=== PATIENT | female | born 1935 | race Caucasian/White ===

== ENCOUNTER 2022-03-26 15:17 | Outpatient (CLI) | payer MEDICARE, SELFPAY ==
--- NOTE | ~2022-03-26 | CT_ITS ---
EXAMINATION: CT brain wo con DATE: 03/26/2022 15:39 INDICATION: Dizziness, weakness and persistent headaches TECHNIQUE: Computed tomography (CT) of the head was performed without intravenous contrast. Sagittal and coronal reconstructions were performed. The mA was adjusted according to patient size. Iterative reconstruction technique was employed. The dose-length product was 529.67 mGy-cm. COMPARISON: head CT dated 03/28/2010 FINDINGS: Small old lacunar infarcts at the head of the right caudate nucleus and at the left thalamus. No acut e intracranial hemorrhage, acute infarction or abnormal extra axial fluid collection. There is mild s cattered white matter hypoattenuation consistent with chronic small vessel ischemic disease. Symmetri c prominence of the sulci and subarachnoid spaces overlying the convexities consistent with moderate age-appropriate diffuse cerebral volume loss. Ventricles are normal and symmetric. No mass/mass effec t. Changes of bilateral intraocular lens replacement. The orbits and mastoid air cells are normal. Mi ld mucosal thickening the right sphenoid sinus. IMPRESSION: 1. 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 No acute intracranial p rocess. Reviewed, dictated and finalized at location A. [employer] IMPRESSION: 1. 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 N o acute intracranial process.
== END 2022-03-26 15:18 | disposition home or self-care (01) ==
PROVIDERS: PCP Physician Assistant; Visit Provider Physician Assistant
DX: R42 Dizziness and giddiness (principal); Z86.73 Personal history of transient ischemic attack (TIA), and cerebral infarction without residual deficits
CPT/HCPCS: 70450

== ENCOUNTER 2022-10-27 16:38 | Emergency (ER) | payer MEDICARE, SELFPAY ==
--- NOTE | ~2022-10-27 | XR_ITS ---
EXAMINATION: XR ankle RT min 3V, XR foot RT min 3V DATE: 10/27/2022 17:08 INDICATION: Right ankle pain and bruising post fall 3 days prior TECHNIQUE: 1. Anteroposterior, mortise, additional oblique and lateral view of the right ankle were obtained. 2. Dorsoplantar, two oblique and lateral views of the right foot were obtained. COMPARISON: None FINDINGS: Diffuse osteopenia. Nondisplaced avulsion fracture at the distal tip of the lateral malleolus with ov erlying soft tissue swelling. Alignment of the right foot and ankle is otherwise normal. No other acu te fractures identified. Small Achilles and plantar calcaneal spurs. Mild polyarticular osteoarthriti s at a few tarsal metatarsal and interphalangeal joints. IMPRESSION: 1. Nondisplaced avulsion fracture at the tip of the lateral malleolus. Reviewed, dictated and finalized at location A. IMPRESSION: 1. Nondisplaced avulsion fracture at the tip of the lateral malleolus.
[2022-10-27 16:51] VITALS: BP 139/52; PULSE 75; RESP 16; TEMP 36.7; O2SAT 99
--- NOTE | 2022-10-27 17:14 | ED.LOWEXIN ---
HPI - Extremity Injury (Lower) General Chief Complaint: Extremity Injury, Lower Stated Complaint: Right Ankle Pain Time Seen by Provider: 10/27/22 17:14 Source: patient, RN notes reviewed and old records reviewed Mode of arrival: ambulatory Limitations: no limitations History of Present Illness HPI Narrative: 86-year-old female presents to the [facility] with complaints of right ankle pain after falling 3 days ago. Patient is not a very good historian. Denies any past medical or surgical history. Has been walking on it for the past 3 days Bruising, swelling noted to the lateral aspect of the right ankle Onset (ago): day(s) (3) Related Data Home Medications Medication Instructions Recorded Confirmed No Home Medications 10/27/22 10/27/22 Allergies Allergy/AdvReac Type Severity Reaction Status Date / Time No Known Allergies Allergy Unverified 05/24/17 10:34 Review of Systems Review of Systems: All systems reviewed & are unremarkable except as noted in HPI and below Constitutional: Constitutional: Reports no additional constitutional complaints Eyes: Eyes: Reports no additional eye complaints ENT: Reports system reviewed and no additional complaints, except as documented Cardiovascular: Cardiovascular: Reports no additional cardiovascular complaints, Denies chest pain and Denies dyspnea Respiratory: Respiratory: Reports no additional respiratory complaints, Denies chest congestion, Denies cough and Denies dyspnea Gastrointestinal: Gastrointestinal: Reports no additional gastrointestinal complaints, Denies abdominal pain, Denies nausea and Denies vomiting Musculoskeletal: Musculoskeletal: Reports as per HPI, Reports arthralgias and Reports joint swelling Integumentary/Breasts: Skin/Breast: Reports system reviewed and no additional complaints, except as docu Neurologic: Reports system reviewed and no additional complaints, except as documented Psychiatric: Psychiatric: Reports no additional psychiatric complaints Allergic/Immunologic: Allergic/Immunologic: Reports no additional allergic/immunologic complaints [facility] Family History Family History Other Family history of lung cancer Social History Social History Smoking status: Former smoker Smoking end date: 03/15/87 Alcohol intake: never Comments At the time of my signature, I reviewed and agree with the nursing past medical, surgical, social, and family history. There is no relevant family history pertinent to the patient complaint. Exam Const: General: cooperative, comfortable, no acute distress, well developed, alert, ill appearing chronically and well nourished Nutritional Appearance: well nourished Orientation/consciousness: patient oriented x3 Limitations: no limitations HENMT: Head: normal to inspection Ears: hearing grossly normal bilaterally and external ears normal Face/Nose/Sinus: Normal external nose present, Normal nares present, Normal nasal mucous membranes and turbinates present and normal facial exam Face and sinus: normal facial exam Eyes: General: appearance normal, both eyes and all related structures Alignment and Position: alignment normal Periorbital: periorbital findings normal Pupils: Equal, round and reactive pupils present EOM: EOMs intact bilaterally Neck: Neck: normal visual inspection, full ROM, no lymphadenopathy and no meningeal signs Chest: Chest palpation & inspection: normal inspection of the chest Resp: Effort & Inspection: normal respiratory effort and able to speak in complete sentences Cardio: Rate: regular rate Rhythm: regular rhythm Back/Spine/Pelvis: Cervical Spine: cervical ROM normal Skin: General skin exam: normal color and no rashes or lesions noted Lesions: no lesions Rashes: no rashes Wounds: no wounds Neuro: General: patient oriented x3, gait normal, tone normal, moves a
== END 2022-10-27 17:56 | disposition home or self-care (01) ==
PROVIDERS: Emergency Provider Nurse Practitioner; PCP Physician Assistant
DX: S82.61XA Displaced fracture of lateral malleolus of right fibula, initial encounter for closed fracture (principal); W19.XXXA Unspecified fall, initial encounter; Z87.891 Personal history of nicotine dependence
CPT/HCPCS: 29125; 73610; 73630; 99214; G0463

== ENCOUNTER 2023-07-21 08:49 | Emergency (ER) | payer OTHER, SELFPAY ==
--- NOTE | ~2023-07-21 | CT_ITS ---
EXAMINATION: CT cervical spine wo con DATE: 07/21/2023 09:49 INDICATION: Fall. Head injury. TECHNIQUE: Computed tomography (CT) of the cervical spine was performed without intravenous contrast. Automated exposure control and iterative reconstruction technique were employed. The dose-length pro duct was 131.19 mGy-cm. COMPARISON: None FINDINGS: There is a right posterior scalp soft tissue swelling. There is mild emphysema. There is mi ld scarring at the lung apices. There is kyphosis of cervical spine. There is 2 mm retrolisthesis of C4 on C5, C5 on C6, and C6 on C7. There is severely decreased disc height from C3-C4 through C6-C7. T he following disc levels are specifically discussed: C2-C3: There is no uncovertebral joint osteoarthritis. There is mild right and moderate left facet wellington int osteoarthritis. There is mild left neural foraminal stenosis. There is no central canal stenosis. C3-C4: There is severe bilateral uncovertebral joint osteoarthritis. There is severe bilateral facet joint osteoarthritis. There is mild bilateral neural foraminal stenosis. There is mild central canal stenosis. C4-C5: There is severe bilateral uncovertebral joint osteoarthritis. There is severe bilateral facet joint osteoarthritis. There is mild bilateral neural foraminal stenosis. There is mild central canal stenosis. C5-C6: There is severe bilateral uncovertebral joint osteoarthritis. There is severe right and modera te left facet joint osteoarthritis. There is mild bilateral neural foraminal stenosis. There is mild central canal stenosis. C6-C7: There is severe bilateral uncovertebral joint osteoarthritis. There is severe bilateral facet joint osteoarthritis. There is mild right and moderate left neural foraminal stenosis. There is mild central canal stenosis. C7-T1: There is no uncovertebral joint osteoarthritis. There is mild bilateral facet joint osteoarthr itis. There is no neural foraminal stenosis. There is no central canal stenosis. IMPRESSION: 1. No fracture. 2. Severe cervical spondylosis. Reviewed, dictated and finalized at location A.
--- NOTE | ~2023-07-21 | CT_ITS ---
EXAMINATION: CT brain wo con DATE: 07/21/2023 09:48 INDICATION: Fall. TECHNIQUE: Computed tomography (CT) of the head was performed without intravenous contrast. The mA wa s adjusted according to patient size. Iterative reconstruction technique was employed. The dose-lengt h product was 605.33 mGy-cm. COMPARISON: Head CT 03/26/2022 FINDINGS: There is an old infarct in the left thalamus. There are old infarcts in the bilateral basal ganglia. There is a small focus of acute subarachnoid hemorrhage in a sulcus in posterior left front al lobe. There is a right frontal temporal parietal occipital subdural hematoma that is predominantly hyperdense to espinoza matter with maximum thickness of 11 mm. There is a left frontotemporal parietal s ubdural hematoma that is mixed hyperdense and hypodense to espinoza matter with maximum thickness of 4 mm . There is no acute ischemic infarct. There are scattered areas of low attenuation in the cerebral wh ite matter. There is 2 mm leftward midline shift. There are likely changes of ocular lens replacement surgeries. There are old fracture deformities of the left zygomaticomaxillary complex. There are mil d mucosal thickening in the paranasal sinuses. The mastoid air cells are normal. There is a right pos terior scalp soft tissue swelling. IMPRESSION: 1. Bilateral acute subdural hematomas. 2. Acute subarachnoid hemorrhage in a sulcus in posterior left frontal lobe. I discussed the intracra nial hemorrhage with Dr. Sepulveda. 3. Old infarcts involving the left thalamus and bilateral basal ganglia. 4. Moderate nonspecific cerebral white matter disease, which likely represents chronic small vessel i schemic disease. Reviewed, dictated and finalized at location A. IMPRESSION: 1. Bilateral acute subdural hematomas. 2. Acute subarachnoid hemorrhage in a sulcus in posterior left frontal lobe. I discussed the intracranial hemorrhage with Dr. Sepulveda. 3. Old infarcts involving the left thalamus and bilateral basal ganglia. 4. Moderate nonspecific cerebral white matter disease, which likely represents chronic small vessel ischemic disease.
--- NOTE | 2023-07-21 09:03 | ED.FALL ---
HPI - Fall General Chief Complaint: Fall Stated Complaint: fall Time Seen by Provider: 07/21/23 09:03 History of Present Illness HPI Narrative: 87-year-old female present to the emergency department for evaluation after having a ground level fall. Patient does not recall having a fall. Patient does have dementia at baseline. Patient presented the ED by girish for a laceration to her posterior scalp. Patient does complain of neck pain. Related Data Home Medications Medication Instructions Recorded Confirmed No Home Medications 10/27/22 10/28/22 Allergies Allergy/AdvReac Type Severity Reaction Status Date / Time No Known Allergies Allergy Verified 07/21/23 10:19 Review of Systems Review of Systems: All systems reviewed & are unremarkable except as noted in HPI and below [facility] Family History Family History Other Family history of lung cancer Social History Social History (Updated 10/28/22 @ 14:55 by Katerine Godinez MA) Smoking status: Former smoker Smoking end date: 03/15/87 Alcohol intake: never Lack of Transportation: No Lack of Food: Never True Current Housing: I Have Housing Concerned About Future Housing: No Difficulty Paying Gas/Electric Bills: No Difficulty Paying for Meds: No Currently Unemployed: No Education: High School Diploma/GED Difficulty w/ Childcare or Family Care: No Exam Narrative: APPEARANCE: Alert in no distress HEAD: normocephalic, atraumatic. EYES: PERRLA/EOMI, conjunctivae clear. NOSE: Normal no drainage EARS:TMS clear with good light reflex. THROAT: Pharynx clear, no exudate. NECK: Supple. No adenopathy, no masses. RESPIRATORY: Airway patent, respirations nonlabored. Clear to auscultation bilaterally, no rales, rhonchi, wheezing. CARDIOVASCULAR: Regular rate and rhythm without murmurs rubs or gallops. ABDOMINAL: Soft, nontender, nondistended, normal bowel sounds MUSCULOSKELETAL: Moves all extremities. Strength/ROM intact, No edema, No calf tenderness. NEURO: Alert. In at normal baseline per girsih SKIN: Posterior scalp hematoma with no active bleeding Course Course Emergency Course: Patient was transferred to [facility] due to bilateral subdural hematoma and subarachnoid hemorrhage Vital Signs Vital signs: Vital Signs Temperature 97.9 F 07/21/23 09:06 Pulse Rate 82 07/21/23 09:06 Respiratory Rate 13 07/21/23 09:06 Blood Pressure 158/92 H 07/21/23 09:06 Pulse Oximetry 98 07/21/23 09:06 Oxygen Delivery Room Air 07/21/23 09:06 Temperature 97.9 F 07/21/23 09:06 Pulse Rate 78 07/21/23 10:39 Respiratory Rate 19 07/21/23 10:31 Blood Pressure 154/78 H 07/21/23 10:39 Pulse Oximetry 100 07/21/23 10:31 Oxygen Delivery Room Air 07/21/23 09:06 MDM - Fall MDM Narrative Medical decision making narrative: 87-year-old female present to the emergency department for evaluation after having a ground level fall. Patient was afebrile with a leukocytosis of 14.6 and a stable hemoglobin, patient's INR is 0.9. Patient had no significant acute abnormalities on her CMP. Head CT showed bilateral subdural hematomas and subarachnoid hemorrhage. Patient's power of employment law attorney states that the patient is a full code and they are not willing to rule out surgical intervention for this. They do prefer to be transferred. Patient has previously been established at [facility]. Case was discussed with [facility] and patient was accepted for transfer. Patient was an ED to ED transfer and was transferred by helicopter. Patient was started on Cardene prior to transfer to maintain a blood pressure of less than 140 systolic. Differential Diagnosis Differential diagnosis: Likely syncope and other (Subdural hematoma, subarachnoid fracture) Lab Data Attestation: I reviewed the patient's lab results. 07/21/23 09:23 07/21/23 09:23 Labs
[2023-07-21 09:06] VITALS: BP 158/92; PULSE 82; RESP 13; TEMP 36.6; O2SAT 98
[2023-07-21 09:36] LABS: Basophils Percent Auto 0.3 % (0.2-1.2); Eosinophils Percent Auto 0.1 % (0-4.4); Hematocrit 38.9 % (37.0-47.0); Hemoglobin 12.1 g/dL (12.0-15.0); Immature Granulocyte Absolute 0.11 K/mm3 (0.00-0.031); Immature Granulocyte Percent A 0.8 % (0-0.5); Lymphocytes Absolute Auto 1.33 K/mm3 (0.9-3.2); Lymphocytes Percent Auto 9.1 % (18.3-44.2); Mean Corpuscular HGB Conc 31.1 g/dl (32-36); Mean Corpuscular Hemoglobin 27.9 pg (26-34); Mean Corpuscular Volume 89.6 fl (80-100); Mean Platelet Volume 9.3 fl (7.4-10.4); Monocytes Absolute Auto 0.7 K/mm3 (0.1-0.6); Monocytes Percent Auto 4.8 % (2.6-8.5); Neutrophils Absolute Auto 12.4 K/mm3 (1.3-6.7); Neutrophils Percent Auto 84.9 % (45.5-73.1); Platelet Count Result 364 k/mm3 (150-375); Red Blood Count 4.34 M/mm3 (4.2-5.4); Red Cell Distribution Width 12.7 % (11.5-14.5); White Blood Count 14.6 K/mm3 (4.5-10.0)
--- NOTE | 2023-07-21 09:44 | PC.NURSE ---
Pt to CT scan via stretcher at this time. Family remains at bedside.
[2023-07-21 09:49] LABS: INR 0.9; Prothrombin Time 12.9 Seconds (11.1-14.7)
[2023-07-21 09:51] LABS: Partial Thromboplastin Time 25.3 Seconds (22.3-36.8)
[2023-07-21 09:55] LABS: Alanine Aminotransferase 13 U/L (6-35); Albumin Level 4.2 g/dL (3.5-5.1); Alkaline Phosphatase 79 U/L (38-126); Anion Gap 8 mmol/L (4-12); Aspartate Amino Transferase 22 U/L (14-36); Bilirubin,Total 0.5 mg/dL (0.2-1.3); Blood Urea Nitrogen 23 mg/dL (7-17); Carbon Dioxide 26 mmol/L (22-30); Chloride 104 mmol/L (98-107); Estimated CRCL calculation 33 ml/min; Estimated Glomerular Filt Rate > 60; Glucose 124 mg/dL (65-110); Potassium 3.1 mmol/L (3.4-5.0); Sodium 138 mmol/L (137-145)
[2023-07-21 09:59] VITALS: PULSE 76
[2023-07-21] MEDS: niCARdipine 20 MG/200 ML 20 MG/200 ML BAG 50 MG IV CONT (09:59)
[2023-07-21 10:13] VITALS: BP 163/97; PULSE 83; RESP 20; O2SAT 94
[2023-07-21 10:20] VITALS: BP 166/84; PULSE 83; RESP 20; O2SAT 96
[2023-07-21 10:31] VITALS: BP 154/68; PULSE 83; RESP 19; O2SAT 100
[2023-07-21 10:39] VITALS: BP 154/78; PULSE 78
== END 2023-07-21 10:42 | disposition short-term general hospital (02) ==
PROVIDERS: Emergency Provider Emergency Medicine; PCP Physician Assistant
DX: S06.5XAA Traumatic subdural hemorrhage with loss of consciousness status unknown, initial encounter (principal); S06.6XAA Traumatic subarachnoid hemorrhage with loss of consciousness status unknown, initial encounter; S01.01XA Laceration without foreign body of scalp, initial encounter; F03.90 Unspecified dementia, unspecified severity, without behavioral disturbance, psychotic disturbance, mood disturbance, and anxiety; Z87.891 Personal history of nicotine dependence; W19.XXXA Unspecified fall, initial encounter
CPT/HCPCS: 36415; 70450; 72125; 80053; 85025; 85610; 85730; 96365; 99291; J2404